=== PATIENT | male | born 1990 | race Asian ===

== ENCOUNTER 2017-04-25 20:57 | Emergency (ER) | payer SELFPAY ==
[2017-04-25 21:15] VITALS: BP 131/70; PULSE 71; TEMP 98; BMI 35.2
--- NOTE | 2017-04-25 22:20 | PDOC ---
History of Present Illness <Mayte Escamilla - Last Filed: 04/26/17 17:22> - History of Present Illness Initial Comments: 04/25/17 22:37 The patient is a 26 year old male, with a significant past medical history of multiple "lipomas" (10 years), who presents to the emergency department with increased tightness after eating to an area with a "lipoma" on his right anterior abdomen. The patient denies pain, but reports the formerly present "lipoma" "never bothered him until he ate tonight and felt tightness around the "lipoma." He reports having 5 "lipomas" over his body, but denies pain to any of them. He denies any other complaints at this time. He denies having the "lipomas" evaluated in the past. Allergies: miconazole nitrate <Sheila Moon - Last Filed: 04/28/17 14:21> - General Chief Complaint: Pain, Acute Stated Complaint: RASH ON STOMACH Time Seen by Provider: 04/25/17 21:32 Past History - Psycho/Social/Smoking Cessation Hx Suicidal Ideation: No Smoking History: Never smoked Have you smoked in the past 12 months: No Information on smoking cessation initiated: No Hx Alcohol Use: No Drug/Substance Use Hx: No <Mayte Escamilla - Last Filed: 04/26/17 17:22> <Sheila Moon - Last Filed: 04/28/17 14:21> - Past Medical History Allergies/Adverse Reactions: Allergies Allergy/AdvReac Type Severity Reaction Status Date / Time miconazole nitrate Allergy Verified 04/25/17 21:07 [From Neosporin AF] Home Medications: Ambulatory Orders NK [No Known Home Medication] 04/25/17 Review of Systems - Review of Systems Able to Perform ROS?: Yes Constitutional: No: Fever, Weakness HEENTM: No: Eye Pain, Blurred Vision, Tearing, Recent change in vision, Double Vision, Cataracts, Ear Pain, Ocular Prothesis, Ear Discharge, Nose Pain, Nose Congestion, Tinnitus, Nose Bleeding, Hearing Loss, Throat Pain, Throat Swelling , Mouth Pain, Dental Problems, Difficulty Swallowing, Mouth Swelling, Other Respiratory: No: Cough, Orthopnea, Shortness of Breath, SOB with Exertion, SOB at Rest, Stridor, Wheezing, Productive cough, Hemoptysis, Other ABD/GI: Yes: See HPI. No: Abdominal Distended, Abd. Pain w/ defecation, Blood Streaked Bowels, Constipated, Diarrhea, Difficulty Swallowing, Nausea, Poor Appetite, Poor Fluid Intake, Rectal Bleeding, Vomiting, Indigestion, Abdominal cramping, Tarry Stools, Other Musculoskeletal: Yes: See HPI Integumentary: Yes: Symptoms Reported, See HPI, Other (tightness around lipoma after eating) <Sheila Moon - Last Filed: 04/28/17 14:21> *Physical Exam - Vital Signs Last Vital Signs Temp Pulse Resp BP Pulse Ox 98.0 F 71 18 131/70 99 04/25/17 21:07 04/25/17 21:07 04/25/17 21:07 04/25/17 21:07 04/25/17 21:07 <Mayte Escamilla - Last Filed: 04/26/17 17:22> - Vital Signs Last Vital Signs Temp Pulse Resp BP Pulse Ox 98.0 F 71 18 131/70 99 04/25/17 21:07 04/25/17 21:07 04/25/17 21:07 04/25/17 21:07 04/25/17 21:07 - Physical Exam Comments: 04/25/17 22:39 GENERAL: Well-appearing, well-nourished. No apparent distress. HEENT: Normocephalic, atraumatic. PERRL, EOM intact. CARDIOVASCULAR: Normal S1, S2. Regular rate and rhythm. PULMONARY: Clear to auscultation bilaterally. ABDOMEN: Soft, non-distended, non-tender. EXTREMITIES: Normal ROM in all four extremities. No gross deformities. SKIN: (+) scattered multiple small, focal, mobile, nontender, nonfluctuant skin nodules. nonerythematous. Warm, dry. No rash NEUROLOGICAL: No focal neurological deficits. <Sheila Moon - Last Filed: 04/28/17 14:21> *DC/Admit/Observation/Transfer - Discharge Dispostion Admit: No <Mayte Escamilla - Last Filed: 04/26/17 17:22> - Attestations Scribe Attestion: 04/25/17 22:40 Documentation prepared by Sheila Moon, acting as medical technicians for Emergency Dept, REFRIGERATING MACHINE OPERATOR, Mayte Escamilla <Sheila Moon - Last Filed: 04/28/17 14:21> Diagnosis at time of Disposition: Skin abnormalities - Discharge Dispostion Disposition: HOME Condition at time of disposition: Improved - Referrals Referrals: Ori Ayala MD [Non Staff, Medical] - - Patient Instructions Additional Instructions: As discussed, you need to follow up with a math and science instructor for further evaluation of your skin nodules. If your skin nodules suddenly change, become painful, or you develop fever, nausea, vomiting diarrhea, or any new or worsening symptoms, please return to the ER.
== END 2017-04-25 22:30 | disposition home or self-care (01) ==
LOC: JERFT 20:57
DX: L98.8 Other specified disorders of the skin and subcutaneous tissue (principal)
CPT/HCPCS: 99281-25

== ENCOUNTER 2017-07-20 19:08 | Emergency (ER) | payer SELFPAY ==
[2017-07-20 19:14] VITALS: BP 145/64; PULSE 75; TEMP 98.4; BMI 32.5
[2017-07-20] MEDS ORDERED: SODIUM CHLORIDE 1,000 ML IV STA (20:13)
[2017-07-20] MEDS ORDERED: ONDANSETRON 4 MG/2 ML VIAL ONE (20:15)
[2017-07-20] MEDS ORDERED: ONDANSETRON 4 MG/2 ML VIAL IVPUSH ONE (20:19)
[2017-07-20 20:22] LABS: BASOPHIL 0.6 % (0-2.0); MCH 28.2 pg (25.7-33.7); MCHC 33.9 g/dl (32.0-35.9); MEAN CELL VOLUME 83.4 fl (80-96); MEAN PLT VOLUME 8.1 fl (7.5-11.1); NEUTROPHILS 68.5 % (42.8-82.8); PLATELET COUNT 284 K/MM3 (134-434); RDW 12.1 % (11.9-15.9); WHITE BLOOD COUNT 10.4 K/mm3 (4.0-10.0)
[2017-07-20 21:02] LABS: ALBUMIN 3.9 g/dl (3.4-5.0); ALK PHOS 89 U/L (45-117); ANION GAP 5 (8-16); BILIRUBIN,TOTAL 0.5 mg/dL (0.2-1.0); CALCIUM 9.2 mg/dL (8.5-10.1); CO2 27 mmol/L (21-32); CREATININE 1.1 mg/dL (0.7-1.3); GLUCOSE,RANDOM 85 mg/dL (74-106); SGOT/AST 15 U/L (15-37); SGPT/ALT 24 U/L (12-78); TOT PROT 7.2 g/dl (6.4-8.2)
--- NOTE | 2017-07-20 21:10 | PDOC ---
Attending Attestation - Resident Resident Name: HoldenChristiannea - ED Attending Attestation I have performed the following: I have examined & evaluated the patient, The case was reviewed & discussed with the resident, I agree w/resident's findings & plan, Exceptions are as noted - HPI HPI: 07/20/17 21:07 26 M with no PMH presents to ER with abdominal cramps, nausea, and vomiting. Pt states that his symptoms began yesterday after eating tacos. He reports subjective fevers and chills but no measured temps. Endorses abdominal cramps associated with the vomiting. Denies any abdominal pain currently. Denies diarrhea/constipation. Pt states that he had a similar illness last week also after eating tacos. This lasted for 3 days and pt was in usual state of health for the subsequent 3 days until he ate tacos again yesterday. - Physicial Exam PE: 07/20/17 21:09 "GENERAL: Awake, alert, and fully oriented, in no acute distress HEAD: No signs of trauma EYES: PERRLA, EOMI, sclera anicteric, conjunctiva clear ENT: Auricles normal inspection, hearing grossly normal, nares patent, oropharynx clear without exudates. Moist mucosa NECK: Nontender, no stepoffs, Normal ROM, supple, no lymphadenopathy, JVD, or masses LUNGS: Breath sounds equal, clear to auscultation bilaterally. No wheezes, and no crackles HEART: Regular rate and rhythm, normal S1 and S2, no murmurs, rubs or gallops ABDOMEN: Soft, nontender, normoactive bowel sounds. No guarding, no rebound. No masses EXTREMITIES: Normal range of motion, no edema. No clubbing or cyanosis. No cords, erythema, or tenderness NEUROLOGICAL: Cranial nerves II through XII intact. 5/5 strength and sensation in all extremities, Normal speech, normal gait SKIN: Warm, Dry, normal turgor, no rashes or lesions noted. " - Medical Decision Making 07/20/17 21:09 26 M with N/V/abdominal cramps after eating tacos yesterday. Pt with benign abdomen on my exam, with no tenderness or guarding. Likely food poisoning vs gastroenteritis. Will check labs and give GI cocktail. - Labs - GI cocktail, IVF Pt reassessed s/p GI cocktail and fluids. Reports nausea has now resolved and is able to tolerate PO fluids with no nausea or vomiting. Clinically stable for DC.
--- NOTE | 2017-07-20 21:53 | PDOC ---
History of Present Illness - General Chief Complaint: Nausea/Vomiting Stated Complaint: STOMACH PAIN Time Seen by Provider: 07/20/17 19:49 History Source: Patient Exam Limitations: No Limitations - History of Present Illness Initial Comments: 26yo M with PMH of multiple lipomas presents c/o vomiting x 3 since this morning. Pt reports a similar illness 10 days ago, where he vomited 2-3 times, took a long nap and then felt better. Previous illness as well as today's illness occurred after pt ate tacos (from different restaurants though). This morning he awoke at 6am and upon standing vomited twice. At 8am he tried to eat some soup and then vomited again. Each episode of vomiting was nbnb. Pt has not vomited since 8am. He took a long nap and presented to the ER this evening. Pt reports dizziness prior to vomiting, none now. Pt reported subjective fever at home, chills, and malaise. Pt does not have a PCP and is open for a referral. 07/20/17 22:52 Associated Symptoms: reports: fever/chills, malaise, nausea/vomiting. denies: chest pain, cough, diaphoresis, rash, shortness of breath Past History - Past Medical History Allergies/Adverse Reactions: Allergies Allergy/AdvReac Type Severity Reaction Status Date / Time miconazole nitrate Allergy Verified 04/25/17 21:07 [From Neosporin AF] Home Medications: Ambulatory Orders NK [No Known Home Medication] 04/25/17 Other medical history: denies medical history - Suicide/Smoking/Psychosocial Hx Smoking History: Never smoked Have you smoked in the past 12 months: No Information on smoking cessation initiated: No Hx Alcohol Use: Yes Drug/Substance Use Hx: No Review of Systems - Review of Systems Able to Perform ROS?: Yes Is the patient limited Tajik proficient: No Constitutional: Yes: Chills, Fever, Malaise. No: Diaphoresis HEENTM: No: Recent change in vision, Ear Pain, Nose Pain, Throat Pain Respiratory: No: Cough, Shortness of Breath, Stridor, Wheezing, Hemoptysis Cardiac (ROS): No: Chest Pain, Edema, Irregular Heart Rate, Lightheadedness, Palpitations, Chest Tightness ABD/GI: Yes: Vomiting. No: Abdominal Distended, Constipated, Diarrhea, Nausea, Rectal Bleeding, Abdominal cramping : No: Burning, Dysuria, Hematuria Musculoskeletal: No: Joint Pain, Muscle Pain Integumentary: No: Bruising, Erythema, Rash Neurological: No: Numbness, Paresthesia, Unsteady Gait Hematologic/Lymphatic: No: Anemia, Easy Bleeding *Physical Exam - Vital Signs Last Vital Signs Temp Pulse Resp BP Pulse Ox 98.4 F 75 18 145/64 99 07/20/17 19:12 07/20/17 19:12 07/20/17 19:12 07/20/17 19:12 07/20/17 19:12 - Physical Exam General Appearance: Yes: Nourished, Appropriately Dressed. No: Apparent Distress HEENT: positive: EOMI, Normal Voice, Other (moist mucous membranes). negative: Pale Conjunctivae, Scleral Icterus (R), Scleral Icterus (L), Nasal Congestion, Rhinorrhea Neck: positive: Trachea midline, Supple Respiratory/Chest: positive: Lungs Clear, Normal Breath Sounds. negative: Respiratory Distress, Accessory Muscle Use Cardiovascular: positive: Regular Rhythm, Regular Rate, S1, S2. negative: Murmur Gastrointestinal/Abdominal: positive: Soft. negative: Distended, Guarding, Rebound, Tenderness Musculoskeletal: positive: Normal Inspection. negative: Decreased Range of Motion Extremity: positive: Normal Inspection. negative: Swelling Integumentary: positive: Normal Color, Dry, Warm Neurologic: positive: Fully Oriented, Alert, Normal Mood/Affect, Normal Response , Motor Strength 5/5 ED Treatment Course - LABORATORY CBC & Chemistry Diagram: 07/20/17 20:15 07/20/17 20:15 - ADDITIONAL ORDERS Additional order review: Laboratory Results 07/20/17 20:15 Sodium 139 Potassium 4.1 Chloride 107 Carbon Dioxide 27 Anion Gap 5 L BUN 15 Creatinine 1.1 Creat Clearance w eGFR > 60 Random Glucose 85 Calcium 9.2 Total Bilirubin 0.5 AST 15 ALT 24 Alkaline Phosphatase 89 Total Protein 7.2 Albumin 3.9 07/20/17 20:15 RBC 5.12 MCV 83.4 MCHC 33.9 RDW 12.1 MPV 8.1 Neutrophils % 68.5 Lymphocytes % 21.8 Monocytes % 7.1 Eosinophils % 2.0 Basophils % 0.6 - Medications Given in the ED: ED Medications Discontinued Medications Generic Name Dose Route Start Last Admin Trade Name Freq PRN Reason Stop Dose Admin Sodium Chloride 1,000 mls @ 1,000 mls/hr 07/20/17 20:13 07/20/17 20:22 Normal Saline - IV 07/20/17 21:12 1,000 mls/hr ASDIR STA Administration Ondansetron HCl 4 mg 07/20/17 20:19 07/20/17 20:22 Zofran Injection IVPUSH 07/20/17 20:20 4 mg ONCE ONE Administration Medical Decision Making - Medical Decision Making 26yo M with PMH of multiple lipomas presents c/o nbnb vomiting x 3 episodes this morning. Pt reports a similar illness 10 days ago, that resolved spontaneously. Pt also c/o subjective fever, chills, malaise, dizziness prior to vomiting, all resolved now. Physical exam unremarkable. Ddx: food poisoning vs gastroenteritis CBC with diff -> unremarkable CMP -> wnl NS 1 L bolus Zofran 4mg IVpush Upon reassessment pt was feeling better. Referrals for a PCP given. Pt can go home. 07/20/17 23:29 *DC/Admit/Observation/Transfer Diagnosis at time of Disposition: Nausea & vomiting - Discharge Dispostion Disposition: HOME Condition at time of disposition: Improved Admit: No - Referrals Referrals: Kia Clayton MD [Staff Physician] - Monae Bautista MD [Staff Physician] - - Patient Instructions Printed Discharge Instructions: DI for Vomiting -- Adult Additional Instructions: Please make an appointment with a Primary Care Doctor (either Dr. Bautista or Dr. Clayton) to establish care. Please return to the hospital for persistent or worsening vomiting, pain, or for any medical emergency (such as chest pain, palpitations, difficulty breathing). - Post Discharge Activity Forms/Work/School Notes: Back to Work
== END 2017-07-20 22:09 | disposition home or self-care (01) ==
LOC: JER 19:08
PROC: 3E033GC Introduction of Other Therapeutic Substance into Peripheral Vein, Percutaneous Approach (ICD-10-PCS; principal; 2017-07-20)
DX: R11.2 Nausea with vomiting, unspecified (principal)
CPT/HCPCS: 36415; 80053; 85025; 99283-25

== ENCOUNTER 2018-06-07 00:20 | Emergency (ER) | payer SELFPAY ==
[2018-06-07 00:59] VITALS: BP 151/78; PULSE 80; TEMP 98.8; BMI 32.5
[2018-06-07] MEDS ORDERED: ONDANSETRON *ODT* 4 MG TABLET SL ONE (01:46)
[2018-06-07] MEDS ORDERED: MECLIZINE HCL 25 MG TABLET (FP) PO STA (01:46)
--- NOTE | 2018-06-07 01:46 | PDOC ---
History of Present Illness - General History Source: Patient Exam Limitations: No Limitations - History of Present Illness Initial Comments: 06/07/18 01:52 The patient is a 27 year old male, with a significant past medical history of multiple lipomas, who presents to the emergency department with, dizziness. He describes his dizziness as the room spinning with associated nausea and chest tightness. As per patient, when it is at the worst he loses balance, almost falls, and has associated shortness of breath. He denies any recent fevers, chills, or headache. He denies any recent vomit, diarrhea or constipation. He denies any recent dysuria, frequency, urgency or hematuria. Allergies: Miconazole nitrate. Past surgical history: None reported. Social History: Nonsmoker. Denies EtOH use and recreational drug use. <Domo Adrian - Last Filed: 06/07/18 01:54> - General History Source: Patient <YenniLidaFidel - Last Filed: 06/07/18 04:16> - General Chief Complaint: Shortness of Breath Stated Complaint: DIFFICULTY BREATHING Time Seen by Provider: 06/07/18 01:46 Past History <Domo Adrian - Last Filed: 06/07/18 01:54> - Past Medical History COPD: No - Suicide/Smoking/Psychosocial Hx Smoking History: Never smoked Have you smoked in the past 12 months: No Hx Alcohol Use: Yes Drug/Substance Use Hx: No <Fidel Adams - Last Filed: 06/07/18 04:16> - Past Medical History Allergies/Adverse Reactions: Allergies Allergy/AdvReac Type Severity Reaction Status Date / Time miconazole nitrate Allergy Verified 06/07/18 00:58 [From Neosporin AF] Home Medications: Ambulatory Orders Meclizine HCl 25 mg PO TID #30 tablet 06/07/18 Review of Systems - Review of Systems Able to Perform ROS?: Yes Comments:: 06/07/18 01:53 CONSTITUTIONAL: Absent: fever, no chills, no fatigue EYES: Absent: visual changes ENT: Absent: ear pain, no sore throat CARDIOVASCULAR: Present: Chest tightness. Absent: no palpitations RESPIRATORY: Present: SOB. Absent: cough GI: Present: Nausea. Absent: abdominal pain, no vomiting, no constipation, no diarrhea GENITOURINARY: Absent: dysuria, no frequency, no hematuria MUSKULOSKELETAL: Absent: back pain, no arthralgia, no myalgia SKIN: Absent: rash NEURO: Present: Dizziness. Absent: headache All Other Systems: Reviewed and Negative <Domo Adrian - Last Filed: 06/07/18 01:54> *Physical Exam - Vital Signs Last Vital Signs Temp Pulse Resp BP Pulse Ox 98.8 F 80 20 151/78 100 06/07/18 00:58 06/07/18 00:58 06/07/18 00:58 06/07/18 00:58 06/07/18 00:58 - Physical Exam Comments: 06/07/18 01:53 GENERAL: Well developed, well nourished. Awake and alert. No acute distress. +HEENT: Horizontal nystagmus, increased in the left eye. Normocephalic, atraumatic. No conjunctival pallor. Sclera are non-icteric. Moist mucous membranes. Oropharynx is clear. NECK: Supple. Full ROM. No JVD. Carotid pulses 2+ and symmetric, without bruits. No thyromegaly. No lymphadenopathy. CARDIOVASCULAR: Regular rate and rhythm. No murmurs, rubs, or gallops. Distal pulses are 2+ and symmetric. PULMONARY: No evidence of respiratory distress. Lungs clear to auscultation bilaterally. No wheezing, rales or rhonchi. ABDOMINAL: Soft. Non-tender. Non-distended. No rebound or guarding. No organomegaly. Normoactive bowel sounds. MUSCULOSKELETAL Normal range of motion at all joints. No bony deformities or tenderness. No CVA tenderness. EXTREMITIES: No cyanosis. No clubbing. No edema. No calf tenderness. SKIN: Warm and dry. Normal capillary refill. No rashes. No jaundice. NEUROLOGICAL: Alert, awake, appropriate. Cranial nerves 2-12 intact. No deficits to light touch and temperature in face, upper extremities and lower extremities. No motor deficits in the in face, upper extremities and lower extremities. Normoreflexic in the upper and lower extremities. Normal speech. Toes are down- going bilaterally. PSYCHIATRIC: Cooperative. Good eye contact. Appropriate mood and affect. <Domo Adrian - Last Filed: 06/07/18 01:54> - Vital Signs Last Vital Signs Temp Pulse Resp BP Pulse Ox 98.8 F 80 20 151/78 100 06/07/18 00:58 06/07/18 00:58 06/07/18 00:58 06/07/18 00:58 06/07/18 00:58 <Fidel Adams - Last Filed: 06/07/18 04:16> *DC/Admit/Observation/Transfer - Attestations Scribe Attestion: 06/07/18 01:53 Documentation prepared by Domo Adrian, acting as medical insurance coder for Fidel Adams DO. <Domo Adrian - Last Filed: 06/07/18 01:54> - Discharge Dispostion Decision to Admit order: No <Fidel Adams - Last Filed: 06/07/18 04:16> Diagnosis at time of Disposition: Vertigo - Discharge Dispostion Disposition: HOME Condition at time of disposition: Improved - Referrals Referrals: Santana Fishman MD [Staff Physician] - - Patient Instructions Printed Discharge Instructions: DI for Vertigo
[2018-06-07] MEDS ORDERED: MECLIZINE HCL 25 MG TABLET (FP) ONE (02:00)
[2018-06-07] MEDS ORDERED: ONDANSETRON *ODT* 4 MG TABLET ONE (02:00)
== END 2018-06-07 04:23 | disposition home or self-care (01) ==
LOC: JER 00:20
DX: R42 Dizziness and giddiness (principal)
CPT/HCPCS: 70450-TC; 99284-25; Q0162

== ENCOUNTER 2020-09-13 18:37 | Emergency (ER) | payer OTHER ==
[2020-09-13 18:41] VITALS: BMI 33.2
[2020-09-13] MEDS ORDERED: MAG HYDROX/AL HYDROX/SIMETH 30 ML UNIT-DOSE CUP PO ONE (19:32)
[2020-09-13] MEDS ORDERED: FAMOTIDINE 20 MG/50 ML IVPB 20 MG/50 ML MG IVPB ONE (19:32)
[2020-09-13] MEDS ORDERED: FAMOTIDINE 10 MG TABLET PO ONE (19:35)
[2020-09-13] MEDS ORDERED: FAMOTIDINE 20 MG TABLET ONE (19:44)
[2020-09-13] MEDS ORDERED: MAG HYDROX/AL HYDROX/SIMETH 30 ML UNIT-DOSE CUP ONE (19:46)
[2020-09-13 20:00] LABS: BASO % 0.5 % (0-2.0); EOS % 0.2 % (0-4.5); HEMATOCRIT 43.5 % (35.4-49); HEMOGLOBIN 14.6 GM/dL (11.7-16.9); LYMPH % 23.2 % (8-40); MCH 28.7 pg (25.7-33.7); MCHC 33.7 g/dl (32.0-35.9); MEAN CELL VOLUME 85.2 fl (80-96); MONO % 10.6 % (3.8-10.2); NEUT % 65.5 % (42.8-82.8); PLATELET COUNT 192 K/MM3 (134-434); RBC 5.11 M/mm3 (4.00-5.60); RDW 12.6 % (11.9-15.9); WHITE BLOOD COUNT 3.7 K/mm3 (4.0-10.0)
[2020-09-13 20:19] LABS: POTASSIUM 4.2 mmol/L (3.5-5.1)
[2020-09-13 20:21] LABS: ALBUMIN 3.9 g/dl (3.4-5.0); CALCIUM 8.8 mg/dL (8.5-10.1)
[2020-09-13 20:22] LABS: BLOOD UREA NITROGEN 12.6 mg/dL (7-18)
[2020-09-13 20:25] LABS: CREATININE 1.3 mg/dL (0.55-1.3)
[2020-09-13 20:26] LABS: BILIRUBIN,TOTAL 0.5 mg/dL (0.2-1); TOT PROT 7.2 g/dl (6.4-8.2)
[2020-09-13] MEDS ORDERED: ACETAMINOPHEN 500 MG TABLET (FP) PO ONE (20:42)
[2020-09-13] MEDS ORDERED: ACETAMINOPHEN 325 MG TABLET (FP) ONE (20:45)
[2020-09-13] MEDS ORDERED: SODIUM CHLORIDE 0.9% 500 ML INFUS.BAG IV ONE (21:00)
[2020-09-13 21:48] LABS: PH,URINE 5.5 (5.0-8.0); URINE APPEARANCE CLEAR; URINE BILIRUBIN NEGATIVE (NEGATIVE); URINE COLOR YELLOW; URINE GLUCOSE (UA) NEGATIVE (NEGATIVE); URINE KETONE NEGATIVE (NEGATIVE); URINE LEUK ESTERASE NEGATIVE (NEGATIVE); URINE NITRITE NEGATIVE (NEGATIVE); URINE PROTEIN NEGATIVE (NEGATIVE)
[2020-09-13 22:04] VITALS: BP 114/72; PULSE 61; TEMP 100.2
[2020-09-13] MEDS ORDERED: AZITHROMYCIN 500 MG TABLET PO ONE (22:18)
[2020-09-13] MEDS ORDERED: AZITHROMYCIN 500 MG TABLET ONE (22:42)
== END 2020-09-13 23:26 | disposition home or self-care (01) ==
LOC: JER 18:37
DX: A08.4 Viral intestinal infection, unspecified (principal); U07.1 COVID-19
CPT/HCPCS: 36415; 71046-TC-FY; 74177-TC; 80053; 81003; 85025; 87040; 87086; 99285-25; C9803; Q9967; U0003

== ENCOUNTER 2021-05-11 11:02 | Emergency (ER) | payer OTHER ==
[2021-05-11 11:17] VITALS: BP 114/74; PULSE 79; TEMP 98.1; BMI 32.5
== END 2021-05-11 11:53 | disposition home or self-care (01) ==
LOC: JER 11:02 → JERFT 11:02 → JER 11:53
DX: M25.572 Pain in left ankle and joints of left foot (principal)
CPT/HCPCS: 99281-25

== ENCOUNTER 2021-06-18 07:30 | Emergency (ER) | payer OTHER ==
[2021-06-18 07:43] VITALS: BP 130/78; PULSE 76; TEMP 98.1; BMI 32.3
== END 2021-06-18 08:08 | disposition home or self-care (01) ==
LOC: JERFT 07:30 → JER 07:30 → JERFT 08:08
DX: S86.012A Strain of left Achilles tendon, initial encounter (principal); X50.9XXA Other and unspecified overexertion or strenuous movements or postures, initial encounter; Y93.66 Activity, soccer
CPT/HCPCS: 99281-25